=== PATIENT | male | born 1950 | race Two or more races ===

== ENCOUNTER 2020-02-19 11:17 | Inpatient (IN) | payer OTHER ==
[~2020-02-19] VITALS: Ht 160 cm; Wt 65.3 kg
[2020-03-23] MEDS ORDERED: COZAAR50 MG PO (12:59)
[2020-03-23] MEDS ORDERED: SYNTHROID75 MCG PO (12:59)
[2020-03-23] MEDS ORDERED: JENTADUETO 2.51 EAC2 PO (12:59)
[2020-03-23] MEDS ORDERED: ULTRAM50 MG PO (13:00)
[2020-03-23] MEDS ORDERED: TAMS0.4C PO (13:00)
[2020-03-23] MEDS ORDERED: SIMVASTATIN5 MG PO (13:00)
[2020-03-23] MEDS ORDERED: LYRICA300 MG PO (13:00)
== END 2020-04-01 13:59 | disposition home or self-care (01) | DRG 708 ==
LOC: SURG 03-30 05:52 → O/R 03-30 05:52 → RECOVERY 03-30 07:00 → SURG 03-30 11:51
PROVIDERS: ADMIT Urology; ATTEND Urology
PROC: 07TC0ZZ Resection of Pelvis Lymphatic, Open Approach (ICD-10-PCS; 2020-03-30)
PROC: 0VT00ZZ Resection of Prostate, Open Approach (ICD-10-PCS; principal; 2020-03-30 07:00)
DX: C61 Malignant neoplasm of prostate (principal); D36.0 Benign neoplasm of lymph nodes; I10 Essential (primary) hypertension; E11.9 Type 2 diabetes mellitus without complications; E03.8 Other specified hypothyroidism; M89.49 Other hypertrophic osteoarthropathy, multiple sites